=== PATIENT | female | born 1950 | race Caucasian/White ===

== ENCOUNTER 2017-03-26 12:07 | Outpatient (CLI) | payer OTHER ==
[~2017-03-26 12:07] MED LIST: SYNTHROID137 MCG
== END 2017-03-26 12:08 | disposition home or self-care (01) ==
LOC: MAMO-SONO 12:07
DX: Z12.31 Encounter for screening mammogram for malignant neoplasm of breast (principal); Z87.898 Personal history of other specified conditions; N61.0 Mastitis without abscess; E04.1 Nontoxic single thyroid nodule

== ENCOUNTER 2017-03-26 13:40 | Outpatient (CLI) | payer OTHER | END 2017-03-26 14:39 | disposition home or self-care (01) | LOC: MRI 13:40 | DX: S93.492A Sprain of other ligament of left ankle, initial encounter (principal) | CPT/HCPCS: 73719 ==

== ENCOUNTER 2017-04-07 15:09 | Outpatient (CLI) | payer OTHER | END 2017-04-07 15:22 | disposition home or self-care (01) | LOC: NUCLEAR 15:09 | DX: Z13.820 Encounter for screening for osteoporosis (principal); M81.0 Age-related osteoporosis without current pathological fracture ==

== ENCOUNTER 2017-04-12 11:30 | Outpatient (CLI) | payer OTHER | END 2017-04-12 15:00 | disposition home or self-care (01) | LOC: RAD 11:30 | DX: M46.82 Other specified inflammatory spondylopathies, cervical region (principal); M16.0 Bilateral primary osteoarthritis of hip ==

== ENCOUNTER 2017-04-13 08:28 | Outpatient (CLI) | payer OTHER | END 2017-04-13 08:35 | disposition home or self-care (01) | LOC: SONOGRAMA 08:28 | DX: R10.13 Epigastric pain (principal); K30 Functional dyspepsia ==

== ENCOUNTER 2022-01-10 13:00 | Emergency (ER) | payer OTHER ==
[~2022-01-10] VITALS: Ht 167.6 cm; Wt 77.1 kg
== END 2022-01-10 18:36 | disposition home or self-care (01) ==
LOC: ER 13:00
DX: U07.1 COVID-19 (principal); E03.9 Hypothyroidism, unspecified